=== PATIENT | male | born 1955 | race Caucasian/White ===

== ENCOUNTER 2019-09-13 07:29 | Outpatient (RCR) | payer SELFPAY | END 2019-09-13 23:59 | disposition home or self-care (01) | LOC: ANHAUDIO 07:29 | DX: Z46.1 Encounter for fitting and adjustment of hearing aid (principal) | CPT/HCPCS: 92593 ==

== ENCOUNTER 2020-12-17 13:47 | Outpatient (CLI) | payer OTHER, SELFPAY | END 2020-12-17 13:48 | disposition home or self-care (01) | PROVIDERS: PCP Internal Medicine; Visit Provider Otolaryngology | DX: H90.5 Unspecified sensorineural hearing loss (principal) | CPT/HCPCS: 92557; 92567 ==

== ENCOUNTER 2020-12-31 15:12 | Outpatient (RCR) | payer SELFPAY | END 2021-03-31 23:59 | disposition home or self-care (01) | LOC: ANHAUDASC 15:12 | PROVIDERS: PCP Internal Medicine; Visit Provider Internal Medicine | DX: Z46.1 Encounter for fitting and adjustment of hearing aid (principal) | CPT/HCPCS: 99199 ==

== ENCOUNTER 2021-04-01 10:43 | Outpatient (RCR) | payer OTHER, SELFPAY | END 2021-04-01 23:59 | disposition home or self-care (01) | LOC: ANHAUDIO 10:43 | PROVIDERS: PCP Internal Medicine; Visit Provider Internal Medicine | DX: Z46.1 Encounter for fitting and adjustment of hearing aid (principal) | CPT/HCPCS: 92593 ==

== ENCOUNTER 2022-06-02 18:08 | Emergency (ER) | payer MEDICARE, SELFPAY ==
[2022-06-02 18:22] VITALS: BP 136/70; PULSE 66; RESP 18; TEMP 36.7; O2SAT 99
--- NOTE | 2022-06-02 18:42 | ED.GENADULT ---
HPI - General Adult General Chief complaint: Extremity Injury, Lower Stated complaint: swollen lt leg Time Seen by Provider: 06/02/22 18:26 Source: patient Mode of arrival: ambulatory Limitations: no limitations History of Present Illness HPI narrative: Patient presents today complaint of 1 week history of left lower leg pain, and a 2-day history of swelling. States the pain started out in the calf and has now also moved to the anterior leg. He has been taking ibuprofen with some relief. Denies numbness or tingling in the leg or foot. Denies weakness. Denies chest pain or shortness of breath. Related Data Home Medications Medication Instructions Recorded Confirmed amlodipine 10 mg tablet (Norvasc) 10 mg PO DAILY 12/11/20 06/02/22 aspirin 81 mg tablet,delayed 81 mg PO DAILY 12/11/20 06/02/22 release (Adult Low Dose Aspirin) atorvastatin 80 mg tablet (Lipitor) 80 mg PO DAILY 12/11/20 06/02/22 clopidogrel 75 mg tablet (Plavix) 75 mg PO DAILY 12/11/20 06/02/22 lorazepam 1 mg tablet (Ativan) 1 mg PO Q4-6H 12/11/20 06/02/22 metoprolol succinate 25 mg 25 mg PO DAILY 12/11/20 06/02/22 tablet,extended release 24 hr (Toprol XL) quinapril 40 mg tablet (Accupril) 40 mg PO DAILY 12/11/20 06/02/22 omeprazole 40 mg capsule,delayed 40 mg BID 06/02/22 06/02/22 release Allergies Allergy/AdvReac Type Severity Reaction Status Date / Time No Known Allergies Allergy Verified 06/02/22 18:36 Review of Systems Review of Systems: CONSTITUTIONAL: Denies body aches, fever, chills, or sweats. EYES: Denies visual changes, redness, or discharge. ENT: Denies rhinorrhea, congestion, sore throat, or otalgia. CARDIOVASCULAR: Denies chest pain, palpitations, or edema. RESPIRATORY: Denies cough or dyspnea. GASTROINTESTINAL: Denies abdominal pain, nausea, vomiting, or diarrhea. GENITOURINARY: Denies dysuria or hematuria. SKIN: Denies rash, itching, or wounds. MUSCULOSKELETAL: Denies back pain, joint pain. + Left lower leg pain and swelling NEUROLOGIC: Denies headache, numbness, tingling, or weakness. PSYCH: Denies depression or anxiety. [facility] Past Medical History Medical History Coronary artery disease Heart disease Hypertension Family History Family History Father Heart disease Mother Hypertension Grandparent Depression Social History Social History Smoking status: Never smoker Alcohol intake: never Substance use: never Comments At time of signature, I have reviewed and agree with nursing past medical, surgical, social and family history unless otherwise noted. Please see nursing chart for further information. There is no relevant family history pertinent to the presenting complaint Exam Narrative: GENERAL: Well-appearing, well-nourished, and in no acute distress. HEAD: Normocephalic, atraumatic. EYES: EOMI. No redness or drainage. Conjunctivae normal. ENT: Mucous membranes pink and moist. NECK: Normal AROM. CHEST: No respiratory distress. EXTREMITIES: Left lower le-3+ pitting in the anterior distal lower leg. Tenderness to this area as well. Point tenderness to the medial calf. -Homans. Distal sensation intact. Capillary refill normal. Pedal pulse normal. Dorsiflexion and plantar flexion strong against resistance. Left lower leg is noticeably more swollen than the right lower leg. Right lower leg does have 1+ pitting just above the sock line. Right lower leg is nontender. SKIN: Warm, dry, no rash. Capillary refill normal. Normal skin turgor. NEURO: No focal deficits. Alert and oriented x3. Gait steady. PSYCH: Normal affect. No signs of depression or anxiety. Course Course Level of Care: Express Care Visit Vital Signs Vital signs: Vital Signs Temperature 98.1 F 06/02/22 18:22 Pulse Rate 66
== END 2022-06-02 18:47 | disposition short-term general hospital (02) ==
PROVIDERS: Emergency Provider Nurse Practitioner; PCP Internal Medicine
DX: M79.662 Pain in left lower leg (principal); R22.42 Localized swelling, mass and lump, left lower limb; I25.10 Atherosclerotic heart disease of native coronary artery without angina pectoris; I10 Essential (primary) hypertension; I51.9 Heart disease, unspecified; Z79.82 Long term (current) use of aspirin
CPT/HCPCS: 99212; G0463

== ENCOUNTER 2022-06-02 19:15 | Emergency (ER) | payer MEDICARE, SELFPAY | END 2022-06-02 19:30 | disposition left against medical advice (07) | LOC: ANHED 20:00 | PROVIDERS: PCP Internal Medicine | DX: Z53.21 Procedure and treatment not carried out due to patient leaving prior to being seen by health care provider (principal) | CPT/HCPCS: 99199 ==